=== PATIENT | male | born 1955 | race African-American/Black ===

== ENCOUNTER 2018-03-03 19:55 | Emergency (ER) | payer SELFPAY ==
--- NOTE | 2018-03-03 20:41 | RAD ---
LEFT HAND THREE VIEWS: 03/03/18 HISTORY: Hand pain. Some minimal arthritic changes of the hand and wrist. No signs of fracture. IMPRESSION: No acute findings. POS: [facility]
== END 2018-03-03 21:58 | disposition home or self-care (01) ==
LOC: ERS 19:55
DX: H61.21 Impacted cerumen, right ear (principal); M19.042 Primary osteoarthritis, left hand; F17.210 Nicotine dependence, cigarettes, uncomplicated
CPT/HCPCS: 99406

== ENCOUNTER 2018-10-25 17:22 | Emergency (ER) | payer SELFPAY ==
[2018-10-25] MEDS ORDERED: Ciprofloxacin HCL/Dexameth Otic Drops 7.5 ml Bottle ONE (17:32)
== END 2018-10-25 17:46 | disposition home or self-care (01) ==
LOC: ERS 17:22
DX: H60.93 Unspecified otitis externa, bilateral (principal); F17.210 Nicotine dependence, cigarettes, uncomplicated
CPT/HCPCS: 99282

== ENCOUNTER 2018-12-06 08:58 | Emergency (ER) | payer SELFPAY ==
--- NOTE | 2018-12-06 10:02 | RAD ---
LEFT HAND RADIOGRAPHS THREE VIEWS: Date: 12-06-18 Provided Clinical History: Left hand pain. FINDINGS: Comparison 03-03-18. There is no evidence for fracture or other acute osseous abnormality. Alignment appears anatomic. Dilma nt spaces appear preserved. Soft tissues appear radiographically unremarkable. IMPRESSION: No evidence for an acute osseous abnormality or significant arthropathy. POS: [facility]
== END 2018-12-06 10:50 | disposition home or self-care (01) ==
LOC: ERS 08:58
DX: M79.642 Pain in left hand (principal); L85.3 Xerosis cutis; F17.210 Nicotine dependence, cigarettes, uncomplicated

== ENCOUNTER 2019-10-15 16:17 | Emergency (ER) | payer OTHER ==
--- NOTE | 2019-10-15 17:41 | RAD ---
LEFT HAND RADIOGRAPHS THREE VIEWS: 10/15/19 PROVIDED CLINICAL HISTORY: Pain status post injury. FINDINGS: Comparison is made with 12/06/18. There is no evidence for fracture or other acute osseous abnormality. If there is persistent clinical concern, conservative management and follow-up imaging are advised. IMPRESSION: As above. POS: [facility]
--- NOTE | 2019-10-15 17:44 | CT ---
CT BRAIN 10/15/19 PROVIDED CLINICAL HISTORY: Pain status post injury. FINDINGS: Comparison is made with the study dated 08/21/14. The ventricular system appears normal in size and morphology. There is no evidence for intracranial h emorrhage or mass effect. Partially visualized tripod fracture on the left with displacement of the z ygomatic component. Material of increased density presumably reflecting blood products seen within th e left maxillary sinus. IMPRESSION: 1. No evidence for intracranial hemorrhage or mass effect. 2. Partially visualized left tripod fracture. Correlation with dedicated CT facial bones is gayle mmended. POS: [facility]
--- NOTE | 2019-10-15 17:47 | CT ---
CT FACIAL BONES: 10/15/19 PROVIDED CLINICAL HISTORY: Facial pain status post injury. FINDINGS: There are comminuted, mildly displaced fractures of the anterior and posterior costello of the left maxi llary sinus. There is a displaced fracture of the left zygoma. There is a nondisplaced fracture invol ving the floor of the left orbit. There is no evidence for herniation of orbital fat. Blood products are noted within the left maxillary sinus. There is a displaced fracture of the left lateral orbital wall. The globes and other orbital contents appear normal. No additional fracture is evident. IMPRESSION: Displaced left tripod fracture. POS: [facility]
[2019-10-15] MEDS ORDERED: Morphine 4 MG/ML VIAL ONE (18:04)
[2019-10-15] MEDS ORDERED: Adacel (T-DAP) 0.5 ML SYRINGE ONE (18:04)
[2019-10-15] MEDS ORDERED: Ondansetron PF 4 MG/2 ML Vial ONE (18:04)
== END 2019-10-15 19:41 | disposition home or self-care (01) ==
LOC: ERS 16:17
DX: S02.40DA Maxillary fracture, left side, initial encounter for closed fracture (principal); S02.40FA Zygomatic fracture, left side, initial encounter for closed fracture; S02.32XA Fracture of orbital floor, left side, initial encounter for closed fracture; S02.842A Fracture of lateral orbital wall, left side, initial encounter for closed fracture; F17.210 Nicotine dependence, cigarettes, uncomplicated; Y04.0XXA Assault by unarmed brawl or fight, initial encounter
CPT/HCPCS: 70460; 70486; 90471; 90715; 96361; 96374; 96375; J2270; J2405